=== PATIENT | female | born 1945 | race Caucasian/White ===

== ENCOUNTER 2017-01-14 22:30 | Inpatient (IN) | payer OTHER ==
--- NOTE | ~2017-01-14 | OP ---
Record Of Operation [facility] [address] [place]. [address] NAME: TAMI SHEEHAN : 47 STATUS : ADM IN PAT#: [id number] AGE: 71 ADM/REG DATE : 01/14/17 MR#: [id number] REPORT SERV DATE: 01/16/17 DICTATED BY: SATNAM VIDAL DATE: 01/15/17 REPORT STATUS : Draft TRANSCRIBED BY: MODZahira DATE: 01/15/17 DATE OF PROCEDURE: 01/15/2017 PTCA REPORT INDICATION FOR THIS PROCEDURE: Acute coronary syndrome. PROCEDURE IN DETAIL: The patient had already been prepped and draped. A 6-Niuean sheath was in place in the right femoral artery from the preceding cardiac catheterization. Moderate IV sedation was administered. A 6 JL4 coronary guiding catheter was advanced to the left coronary ostium. Left coronary artery injections confirmed the presence of a 95% ostial stenosis to the first diagonal branch just proximal to the site of previous stent implantation. After unsuccessful attempt to pass a 0.014 Luge guidewire and a 0.014 Graphix guidewire into the distal diagonal branch, a 0.014 Fielder XT guidewire was passed into the distal diagonal branch using a fine-cross catheter for support. The ostium of the diagonal branch was dilated with a 2.0/12 Emerge balloon at up to 15 atmospheres pressure for 15 seconds in duration. A 2.5/12 Synergy stent was then deployed in the ostium of the diagonal branch at up to 15 atmospheres pressure for 15 seconds in duration. Following deployment of the stent, the left coronary artery injections showed 0% residual stenosis at the site of stent implantation with LING grade 3 distal flow. The distal diagonal branch was small caliber and diffusely diseased and judged not suitable for further PCI. Following removal of the guiding catheter, the sheath was left in place. TOTAL CONTRAST USED: 200 mL. TOTAL RADIATION EXPOSURE: 1100 mGy. ESTIMATED BLOOD LOSS: No significant blood loss occurred. IMPRESSION: Successful PTCA and placement of drug-eluting stent in ostium of the first diagonal branch. RAAD/JINA Satnam Vidal M.D., Andrés / [id number] CC: Satnam Vidal M.D., Andrés ORELLANA NP
--- NOTE | ~2017-01-14 | PRECARD ---
H&P [address] [place]. [address] NAME: TAMI SHEEHAN : 47 STATUS : ADM IN PAT#: [id number] AGE: 71 ADM/REG DATE : 01/14/17 MR#: [id number] REPORT SERV DATE: 01/15/17 DICTATED BY: SATNAM LANGLEY DATE: 01/15/17 REPORT STATUS : Draft TRANSCRIBED BY: JINA DATE: 01/15/17 DATE OF ADMISSION: 01/14/2017 HISTORY OF PRESENT ILLNESS: The patient is a 71-year-old white female, who is status post previous myocardial infarction and stenting in June. The patient presented to [facility], complaining of oppressive substernal chest discomfort, radiating into her left shoulder intermittently throughout most of the day yesterday. The patient had negative cardiac enzymes and no acute changes on the electrocardiogram. The patient has continued to have discomfort since admission to [facility]. PAST MEDICAL HISTORY: Remarkable for coronary artery disease, hypertension, and cholecystectomy. SOCIAL HISTORY: The patient does not smoke. FAMILY HISTORY: Positive for coronary artery disease. REVIEW OF SYSTEMS: The patient has cough, wheeze, sputum production, vomiting, diarrhea, or dysuria. PHYSICAL EXAMINATION: VITAL SIGNS: Blood pressure is 143/54, heart rate 67 and regular, respirations 16 and nonlabored. ENT: Unremarkable. NECK: No jugular venous distention with good carotid upstroke. CHEST: Clear. CARDIOVASCULAR: The PMI is not displaced. S1 is normal. S2 is narrowly split. No gallop is present. ABDOMEN: Soft and nontender with normal bowel sounds. EXTREMITIES: No cyanosis, clubbing, or edema. SKIN: Warm and dry with no pallor or icterus. NEURO/PSYCH: The patient is oriented x3 with appropriate affect. LABORATORY DATA: BUN is 20, creatinine 1.1, hematocrit 36.7, potassium 3.7. EKG is within normal limits. IMPRESSION: 1. Acute coronary syndrome. 2. Hypertension. PLAN: 1. Proceed with cardiac catheterization for definitive evaluation of coronary anatomy and possible PCI. 2. Continue home medications for the time being. H&P [place] [id number] [facility] [place]. [address] NAME: TAMI SHEEHAN : 47 STATUS : ADM IN PAT#: [id number] AGE: 71 ADM/REG DATE : 01/14/17 MR#: [id number] REPORT SERV DATE: 01/15/17 DICTATED BY: SATNAM LANGLEY DATE: 01/15/17 REPORT STATUS : Draft TRANSCRIBED BY: JINA DATE: 01/15/17 RAAD/JINA Satnam Langley M.D., Andrés / [id number] CC: Satnam Langley M.D., JASON DALY
--- NOTE | ~2017-01-14 | CN ---
Consultation Report [place] [id number] [facility] [place]. [address] NAME: TAMI SHEEHAN : 47 STATUS : ADM IN [facility]#: [id number] AGE: 71 ADM/REG DATE : 01/14/17 MR#: [id number] REPORT SERV DATE: 01/16/17 DICTATED BY: ADAN BISWAS DATE: 01/16/17 REPORT STATUS : Draft TRANSCRIBED BY: MODL DATE: 01/16/17 CONSULT DATE OF CONSULTATION: 01/16/2017 REASON FOR CONSULTATION: Postoperative ventilator management. HISTORY OF PRESENT ILLNESS: The patient is a 71-year-old white female with a past medical history of hypertension, coronary artery disease, status post PCI in June of 2016 who initially presented to an outside hospital on the with complaints of progressive substernal chest pain that radiated to her left shoulder intermittently throughout most of the day preceding her admission. She at that time had negative cardiac markers as well as negative EKG but continued to have chest pain following admission, so was transferred here for which she underwent a cardiac catheterization today by Dr. Vidal. She had occlusion of her OM1 and had a drug-eluting stent placed. Following her heart catheterization, she had a progressive hypotension despite IV fluids and had an abdominal CT scan that showed a large amount of intraperitoneal retroperitoneal hemorrhage. She was taken by Vascular Surgery to have repair of her aneurysm and now comes out on the ventilator, and we are consulted to assist in management of her postoperative respiratory failure. PAST MEDICAL HISTORY: 1. Coronary artery disease, status post PCI in 06/2016. 2. Hypertension. 3. History of cholecystectomy. HOME MEDICATIONS: See medication reconciliation form. ALLERGIES: NO KNOWN DRUG ALLERGIES. SOCIAL HISTORY: Per the chart, no tobacco, alcohol, or IV drug abuse. FAMILY HISTORY: Unable to obtain secondary to sedation and intubation. REVIEW OF SYSTEMS: Unable to obtain secondary to sedation and intubation. PHYSICAL EXAMINATION: VITAL SIGNS: Temperature 98.3, heart rate 66, respiratory rate 10, and blood pressure 165/82. GENERAL: Sedated, intubated. HEENT: Pupils equal, round, and reactive to light. Extraocular movements intact. Oropharynx clear. Moist mucous membranes. NECK: Supple. Nontender. No lymphadenopathy. No thyromegaly. No jugular venous Consultation Report [place] [id number] [facility] [place]. [address] NAME: TAMI SHEEHAN : 47 STATUS : ADM IN PAT#: [id number] AGE: 71 ADM/REG DATE : 01/14/17 MR#: [id number] REPORT SERV DATE: 01/16/17 DICTATED BY: ADAN BISWAS DATE: 01/16/17 REPORT STATUS : Draft TRANSCRIBED BY: JINA DATE: 01/16/17 distention. LUNGS: Clear to auscultation bilaterally. CARDIOVASCULAR: Regular rate and rhythm. No murmurs, rubs, or gallops. ABDOMEN: Soft, nontender, nondistended. Positive bowel sounds. No hepatosplenomegaly. EXTREMITIES: No cyanosis, clubbing, or edema. NEURO: Sedated. PSYCH: Unable to assess. LABS AND IMAGING: Abdominal CT showed a large amount of intraperitoneal and retroperitoneal hemorrhage on the right side extending superiorly to above the diaphragm. Blood gas with a pH of 7.33, pCO2 of 34, PO2 of 379. CBC with a white count of 18,000, hemoglobin 10.7, and metabolic profile remarkable for creatinine of 1.2. ASSESSMENT AND PLAN: The patient is a 71-year-old white female with a past medical history of coronary artery disease, status post stent placement in 06/2016 as well as hypertension who initially presented with a [id number] myocardial infarction now status post drug- eluting stent to the [facility] now with acute postoperative respiratory failure and hypertension. 1. Postoperative respiratory failure. I have decreased the patient's tidal volume to 500 mL. I will continue ventilator management. We will provide daily awakening trials while the patient is on the ventilator to assess her neuro status and to assess for readiness to wean in the morning. 2. Hypertension. We will use labetalol IV p.r.n. and start Cardene drip if needed for refractory hypertension. 3. Appreciate the consult. We will continue to follow along with you. Please call with questions. DARIEL/JINA Adan Biswas MD / [id number] CC: Satnam Vidal M.D., F.A.CIsadoraCIsadora
--- NOTE | ~2017-01-14 | OP ---
Record Of Operation [facility] [address] [place]. [address] NAME: TAMI SHEEHAN : 47 STATUS : ADM IN PAT#: [id number] AGE: 71 ADM/REG DATE : 01/14/17 MR#: [id number] REPORT SERV DATE: 01/16/17 DICTATED BY: SATNAM VIDAL DATE: 01/15/17 REPORT STATUS : Draft TRANSCRIBED BY: JINA DATE: 01/15/17 DATE OF PROCEDURE: 01/15/2017 CARDIAC CATHETERIZATION REPORT INDICATION FOR THIS PROCEDURE: Acute coronary syndrome. PROCEDURE IN DETAIL: The patient was prepped and draped in usual sterile fashion. Adequate anesthesia was obtained over the right femoral vessels using lidocaine infiltration. Moderate IV sedation was administered. Using the Seldinger technique, 6-Guatemalan sheath was placed in the right femoral artery. A 6 FL4 coronary catheter was advanced in the left coronary ostium. Left coronary artery injections were performed in multiple views. Left coronary catheter was exchanged for 6 FR4 coronary catheter, which was advanced to the right coronary ostium. Right coronary injections were then performed in the STEVE and JEFFERS views. The right coronary catheter was removed and sheath was left in place in anticipation of subsequent angioplasty. There were no apparent complications. RESULTS: 1. Left main coronary artery is normal. 2. Left anterior descending coronary artery has a widely patent stent in its midportion. The ostium of the first diagonal branch of the LAD has a 95% stenosis proximal to the site of previous stent implantation. The distal first diagonal branch is a small caliber and diffusely diseased vessel. 3. Left circumflex coronary artery has a 30% to 40% lesion in the ostium of the obtuse marginal branch and is otherwise unremarkable. 4. The right coronary artery is a dominant vessel with a widely patent stented segment proximal to the origin of the posterior descending branch and in the proximal posterior descending branch. IMPRESSION: 1. Patent stents in mid LAD and RCA. 2. High-grade stenosis of the ostium of previously stented first diagonal branch. PLAN: Proceed with PCI of the first diagonal branch. RAAD/JINA Satnam Vidal M.D., Andrés / [id number] CC: Satnam Vidal M.D., Andrés Record Of Operation [address] [address] NAME: TAMI SHEEHAN : 46 STATUS : ADM IN PAT#: [id number] AGE: 71 ADM/REG DATE : 01/14/17 MR#: [id number] REPORT SERV DATE: 01/16/17 DICTATED BY: SATNAM VIDAL DATE: 01/15/17 REPORT STATUS : Draft TRANSCRIBED BY: MODZahira DATE: 01/15/17 JASON ORELLANA NP
--- NOTE | ~2017-01-14 | OP ---
Record Of Operation [facility] [address] [place]. [address] NAME: TAMI SHEEHAN : 47 STATUS : ADM IN PAT#: [id number] AGE: 71 ADM/REG DATE : 01/14/17 MR#: [id number] REPORT SERV DATE: 01/16/17 DICTATED BY: [place] AGUILAR DATE: 01/16/17 REPORT STATUS : Draft TRANSCRIBED BY: MODL DATE: 01/16/17 DATE OF PROCEDURE: 01/15/2017 PREOPERATIVE DIAGNOSES: Status post cardiac catheterization with right retroperitoneal bleeding and hypotension. POSTOPERATIVE DIAGNOSES: Status post cardiac catheterization with right retroperitoneal bleeding and hypotension. SURGERY PERFORMED: Open exposure and primary repair of the common femoral artery. BEAD PICKER: Francesca. DESCRIPTION OF PROCEDURE: The patient was brought to the operating suite after developing hypotension after a cardiac catheterization was done. The CT was showing retroperitoneal hematoma. She was brought to the operating room emergently. She was placed under general anesthesia. Right leg was prepped and draped in a sterile fashion. A vertical incision was made over the femoral vessels. Dissection was carried down to the femoral vessels, which were dissected using sharp dissection. The common femoral was encircled distally. Dissection was done up underneath the inguinal ligament until the area of the stick site was noted. There was a lateral puncture site that was not actively bleeding at this point in time. This was oversewn with running 6-0 Prolene suture. Further exploration of the iliac up almost to the common showed no other areas of bleeding. There was a retroperitoneal hematoma that appeared to extend well above this area. You could see only the lower portion from underneath the inguinal ligament. It was suspected that the oozing is possibly due to a secondary source, but there was no evidence of active bleeding at this time. A 10 flat JIAN drain was then placed up into the retroperitoneal space, brought out over the thigh, and sutured to the skin with 3-0 Vicryl. The wound was closed with 2-0 and 3-0 Vicryl for the deep and superficial tissue. The skin was closed with Monocryl subcuticular suture and then Dermabond dressing was applied. Estimated blood loss for the operation was 50 mL. She was stable during the operation after receiving 2 units of blood. She was taken back to the intensive care unit for surveillance. MG/JINA Eugene Aguilar M.D. / [id number]
--- NOTE | ~2017-01-14 | DS ---
Discharge Summary [facility] [address] [facility] [place]. [address] NAME: TAMI SHEEHAN : 47 STATUS : DIS IN PAT#: [id number] AGE: 71 ADM/REG DATE : 01/14/17 MR#: [id number] REPORT SERV DATE: 02/05/17 DICTATED BY: SATNAM VIDAL DATE: 02/04/17 REPORT STATUS : Draft TRANSCRIBED BY: JINA DATE: 02/04/17 Data Collection from hospitalization DISCHARGE DIAGNOSES: 1. Acute coronary syndrome, status post percutaneous coronary intervention to the diagonal. 2. Hypertension. 3. Coronary artery disease. 4. Retroperitoneal bleed. 5. History of myocardial infarction. CONSULTATIONS: 1. Dr. Paxton Biswas. 2. Dr. Eugene Aguilar. PROCEDURES PERFORMED: 1. Cardiac catheterization, 01/15/2017. 2. Percutaneous coronary intervention on 01/15/2017. 3. Open exposure and primary repair of common femoral artery 01/15/2017. 4. CT scan of the abdomen and pelvis without contrast, 01/15/2017. 5. Duplex arterial study of the lower extremities, 01/15/2017. 6. CT scan of the abdomen and pelvis with contrast, 01/21/2017. MEDICATIONS: Aspirin 81 mg daily, Lipitor 40 mg daily, Lotensin 40 mg daily, Coreg 3.125 mg twice a day, Plavix 75 mg daily, hemocyte 324 mg with meals, Lopid 600 mg at bedtime, melatonin 3 mg at bedtime, Nitrostat 0.4 mg sublingually as needed, Percocet 5/325 one tablet every six hours as needed. She was instructed not to continue Brilinta. CONDITION AT DISCHARGE: Stable. DISPOSITION: The patient was discharged home on a low-sodium, low-cholesterol, cardiac diet with activities as instructed. She would follow up with ak 01/29/[address] Eugene Aguilar 01/30/2017. She would follow up with her primary care provider as needed. HOSPITAL COURSE: This is a 71-year-old female who had had a previous myocardial infarction and stenting in June. The patient had presented to [facility] complaining of oppressive substernal chest discomfort that radiated into the left shoulder intermittently throughout most of the day on the day prior to admission. The patient had negative cardiac enzymes and no acute changes on electrocardiogram. The patient continued to have discomfort since admission to [facility]. EKG was within normal limits. It was felt that she had acute coronary syndrome and would need to undergo cardiac catheterization for definitive evaluation of coronary anatomy and possible percutaneous coronary intervention. She was admitted to the hospital at this time for further evaluation and treatment. Upon admission, home medications were continued for the time being. Creatinine level was 1.1. The patient was taken to the cardiac oil field laborer where she underwent the above-mentioned procedure. She tolerated this well, and there were no complications. Following the cardiac catheterization, the patient was found to have right retroperitoneal bleed being and Discharge Summary [facility] [address] [facility] [place]. [address] NAME: TAMI SHEEHAN : 47 STATUS : DIS IN PAT#: [id number] AGE: 71 ADM/REG DATE : 01/14/17 MR#: [id number] REPORT SERV DATE: 02/05/17 DICTATED BY: SATNAM VIDAL DATE: 02/04/17 REPORT STATUS : Draft TRANSCRIBED BY: JINA DATE: 02/04/17 hypotension. The patient had a CT scan that showed retroperitoneal hematoma. Duplex Doppler imaging of the lower extremities was also performed. She was taken to the operating room by Dr. Augilar, where she underwent open exposure and primary repair of the common femoral artery. She tolerated this well, and there were no complications. Echocardiogram had shown no pericardial effusion. Left ventricular ejection fraction was greater than 60%. The following day, the patient was seen by Dr. Paxton Biswas regarding postoperative ventilator management. The patient was on the ventilator, and he had been consulted to assist in management of her postoperative respiratory failure. White count was 18,000. Creatinine level was 1.2. The patient's tidal volume was decreased. Ventilator management continued. He was going to provide daily awakening trial while the patient was on the ventilator to assess her neuro status and to assess for readiness to wean the following morning. IV labetalol would be given as needed for hypertension, and we would begin Cardene drip if needed for refractory hypertension. She was in no distress. Brilinta was going to be changed to Plavix. On the , she was doing okay. H and H were drifting down. The patient had been extubated. She remained in the ICU. On the , she said she was doing better. The pain in the right lower quadrant had decreased. There was no motor or sensory change to the leg. She was afebrile. She was in no distress. She was going to be transferred to the floor. H and H remained stable. The arterial line and central line were going to be removed. She was evaluated by Physical Therapy. On 01/19/2017, she continued to do well. She was up sitting in a chair. She was afebrile. The JIAN drain was discontinued. Over the next couple of days, she continued to do well. Discharge planning was performed. She was ambulating some. On 01/21/2017, she was in no distress. Her lungs were clear. CT scan of the abdomen and pelvis with contrast was performed. There was partial resolution of the hemorrhage extending from the right groin into the right pelvis and right abdomen. No acute hemorrhage was identified. There was no bowel obstruction. There was a large amount of retained stool throughout the colon. Discharge instructions were given. Due to her improved and stable condition, she was discharged home with the above-stated instructions. Information collected by: Maura Asher I submit the above information as my discharge summary. TG/MODL Satnam Vidal M.D., Andrés / [id number] CC: Satnam Vidal M.D., Andrés Aguilar M.D.
[2017-01-14] MEDS ORDERED: LIPITOR40 PO (22:53)
[2017-01-14] MEDS ORDERED: ASAB PO (22:53)
[2017-01-14] MEDS ORDERED: LOTE40 PO (22:54)
[2017-01-14] MEDS ORDERED: BRILINTA90 MG PO (22:54)
[2017-01-14] MEDS ORDERED: NITROSTAT0.4 MG SL (22:55)
[2017-01-14] MEDS ORDERED: LOPID6 PO (22:55)
[2017-01-14 23:51] LABS: BASOPHILS 0.7 %; BASOPHILS ABSOLUTE 0.05 10/3/uL (0.0-0.16); EOSINOPHILS 3.4 %; EOSINOPHILS ABSOLUTE 0.25 10/3/uL (0.0-0.53); HEMOGLOBIN 11.6 g/dL (12.0-16.0); IMMATURE GRANULOCYTES 0.7 %; IMMATURE GRANULOCYTES ABSOLUTE 0.05 10/3/uL (0.0-0.11); LYMPHOCYTES 30.6 %; LYMPHOCYTES ABSOLUTE 2.24 10/3/uL (0.67-4.30); MANUAL DIFF NO %; MEAN CORPUS HGB CONC 34.1 g/dL (32.0-36.0); MEAN CORPUSCULAR HEMOGLOB 30.6 pg (26.0-34.0); MEAN CORPUSCULAR VOLUME 89.7 fL (80-100); MEAN PLATELET VOLUME 11.9 fL (9.2-13.0); MONOCYTES 8.9 %; MONOCYTES ABSOLUTE 0.65 10/3/uL (0.21-1.20); NEUTROPHILS 55.7 %; NEUTROPHILS ABSOLUTE 4.08 10/3/uL (2.02-8.40); PLATELET COUNT 154 10/3/uL (150-400); RBC DISTRIBUTION WIDTH 13.1 % (12.0-16.0); RED CELL COUNT 3.79 10/6/uL (4.0-5.6); WHITE BLOOD CELLS 7.3 10/3/uL (4.5-10.5)
[2017-01-15 00:07] LABS: A/G RATIO 1.2 (0.7-1.9); ALBUMIN 3.8 G/DL (3.5-5.0); ALKALINE PHOSPHATASE 79 U/L (45-117); BUN (BLOOD UREA NITROGEN) 20 MG/DL (6-23); CALCIUM, SERUM 8.9 MG/DL (8.5-10.4); CHLORIDE, SERUM 108 MMOL/L (96-112); CO2 (CARBON DIOXIDE) 27 MMOL/L (24-34); CPK 96 U/L (0-200); CREATININE 1.11 MG/DL (0.55-1.02); GFR AFRICAN AMERICAN 58 ML/MIN (>=60); GFR NON AFRICAN AMERICAN 50 ML/MIN (>=60); GLOBULIN 3.1 G/DL (2.5-4.1); GLUCOSE, SERUM 135 MG/DL (60-99); PARTIAL THROMBO TIME > 150.0 SEC (22.5-37.2); POTASSIUM, SERUM 4.3 MMOL/L (3.5-5.3); SGOT(AST) 22 U/L (5-40); SGPT(ALT) 27 U/L (5-65); SODIUM, SERUM 141 MMOL/L (135-148); TOTAL BILIRUBIN 0.4 MG/DL (0-1.2); TOTAL PROTEIN 6.9 G/DL (6.0-8.5); TROPONIN I <0.02 NG/ML (<0.05)
[2017-01-15 00:09] LABS: CK-MB 0.9 NG/ML
[2017-01-15 01:16] LABS: PHOSPHORUS, SERUM 3.4 MG/DL (2.5-4.5)
[2017-01-15 02:01] LABS: INTERNATIONAL NORMAL RATI 1.1 UNITS (-); PROTIME (NOT ORD) 14.3 SEC (12.0-14.5)
[2017-01-15 06:33] LABS: BUN (BLOOD UREA NITROGEN) 20 MG/DL (6-23); CALCIUM, SERUM 8.9 MG/DL (8.5-10.4); CHLORIDE, SERUM 109 MMOL/L (96-112); CO2 (CARBON DIOXIDE) 26 MMOL/L (24-34); GFR AFRICAN AMERICAN 59 ML/MIN (>=60); GFR NON AFRICAN AMERICAN 51 ML/MIN (>=60); GLUCOSE, SERUM 139 MG/DL (60-99); POTASSIUM, SERUM 4.3 MMOL/L (3.5-5.3); SODIUM, SERUM 141 MMOL/L (135-148); TROPONIN I <0.02 NG/ML (<0.05)
[2017-01-15 14:16] LABS: CPK 93 U/L (0-200)
[2017-01-15 14:17] LABS: CK-MB 2.1 NG/ML
[2017-01-15 19:10] LABS: HEMOGLOBIN 9.4 g/dL (12.0-16.0)
[2017-01-15 23:36] LABS: BE (BASE EXCESS) -7.6 MEQ/L (0 +/- 2.5); CARBOXYHEMOGLOBIN 0.3 % (0-3); HCO3 (ACTUAL BICARBONATE) 17.5 MEQ/L (23-27); HEMOBLOGIN CONTENT 11.5 G/DL (12-16); INSTRUMENT SERIAL # 35151; METHEMOGLOBIN 0.7 % (0-3); MODE CMV; O2 CONTENT 16.8 VOL% (18-24); OPERATOR ID 13861; PCO2 (CO2 TENSION) 34 MMHG (35-45); PO2 (O2 TENSION) 379 MMHG (79-93); SAMPLE Arterial; TIDAL VOLUME 600 ML; pH 7.33 (7.37-7.43)
[2017-01-15 23:47] LABS: BASOPHILS 0.1 %; BASOPHILS ABSOLUTE 0.02 10/3/uL (0.0-0.16); EOSINOPHILS 0.1 %; EOSINOPHILS ABSOLUTE 0.02 10/3/uL (0.0-0.53); HEMATOCRIT 30.8 % (36.0-48.0); HEMOGLOBIN 10.7 g/dL (12.0-16.0); IMMATURE GRANULOCYTES 0.9 %; IMMATURE GRANULOCYTES ABSOLUTE 0.17 10/3/uL (0.0-0.11); LYMPHOCYTES 5.3 %; LYMPHOCYTES ABSOLUTE 0.98 10/3/uL (0.67-4.30); MEAN CORPUS HGB CONC 34.7 g/dL (32.0-36.0); MEAN CORPUSCULAR HEMOGLOB 30.5 pg (26.0-34.0); MEAN CORPUSCULAR VOLUME 87.7 fL (80-100); MEAN PLATELET VOLUME 11.6 fL (9.2-13.0); MONOCYTES 4.3 %; NEUTROPHILS 89.3 %; NEUTROPHILS ABSOLUTE 16.58 10/3/uL (2.02-8.40); PLATELET COUNT 124 10/3/uL (150-400); RBC DISTRIBUTION WIDTH 13.7 % (12.0-16.0); RED CELL COUNT 3.51 10/6/uL (4.0-5.6)
[2017-01-15 23:58] LABS: BUN (BLOOD UREA NITROGEN) 19 MG/DL (6-23); CHLORIDE, SERUM 116 MMOL/L (96-112); CREATININE 1.26 MG/DL (0.55-1.02); GFR AFRICAN AMERICAN 50 ML/MIN (>=60); GFR NON AFRICAN AMERICAN 43 ML/MIN (>=60); POTASSIUM, SERUM 3.9 MMOL/L (3.5-5.3); SODIUM, SERUM 145 MMOL/L (135-148)
[2017-01-16 00:01] LABS: MANUAL DIFF NO %; WHITE BLOOD CELLS 18.6 10/3/uL (4.5-10.5)
[2017-01-16 00:03] LABS: CALCIUM, SERUM 7.2 MG/DL (8.5-10.4); CO2 (CARBON DIOXIDE) 19 MMOL/L (24-34); GLUCOSE, SERUM 178 MG/DL (60-99)
[2017-01-16 03:27] LABS: BE (BASE EXCESS) -6.9 MEQ/L (0 +/- 2.5); CARBOXYHEMOGLOBIN 0.1 % (0-3); HCO3 (ACTUAL BICARBONATE) 19.4 MEQ/L (23-27); HEMOBLOGIN CONTENT 11.4 G/DL (12-16); INSTRUMENT SERIAL # 35151; METHEMOGLOBIN 0.7 % (0-3); MODE CMV; O2 CONTENT 15.8 VOL% (18-24); OPERATOR ID 23712; PCO2 (CO2 TENSION) 42 MMHG (35-45); PO2 (O2 TENSION) 135 MMHG (79-93); SAMPLE Arterial; TIDAL VOLUME 500 ML; pH 7.28 (7.37-7.43)
[2017-01-16 04:29] LABS: HEMATOCRIT 30.4 % (36.0-48.0); HEMOGLOBIN 10.6 g/dL (12.0-16.0)
[2017-01-16 04:45] LABS: CK-MB 8.5 NG/ML
[2017-01-16 04:49] LABS: CPK 285 U/L (0-200)
[2017-01-16 04:50] LABS: TROPONIN I 0.39 NG/ML (<0.05)
[2017-01-16 06:19] LABS: BUN (BLOOD UREA NITROGEN) 20 MG/DL (6-23); CALCIUM, SERUM 7.2 MG/DL (8.5-10.4); CHLORIDE, SERUM 113 MMOL/L (96-112); CO2 (CARBON DIOXIDE) 21 MMOL/L (24-34); CREATININE 1.21 MG/DL (0.55-1.02); GFR AFRICAN AMERICAN 52 ML/MIN (>=60); GFR NON AFRICAN AMERICAN 45 ML/MIN (>=60); GLUCOSE, SERUM 217 MG/DL (60-99); POTASSIUM, SERUM 4.2 MMOL/L (3.5-5.3); SODIUM, SERUM 143 MMOL/L (135-148)
[2017-01-16 07:03] LABS: BASOPHILS 0.1 %; BASOPHILS ABSOLUTE 0.01 10/3/uL (0.0-0.16); EOSINOPHILS 0 %; IMMATURE GRANULOCYTES 0.9 %; IMMATURE GRANULOCYTES ABSOLUTE 0.16 10/3/uL (0.0-0.11); LYMPHOCYTES 3.3 %; LYMPHOCYTES ABSOLUTE 0.59 10/3/uL (0.67-4.30); MEAN CORPUS HGB CONC 35.3 g/dL (32.0-36.0); MEAN CORPUSCULAR HEMOGLOB 30.5 pg (26.0-34.0); MEAN CORPUSCULAR VOLUME 86.2 fL (80-100); MONOCYTES 6.5 %; MONOCYTES ABSOLUTE 1.16 10/3/uL (0.21-1.20); NEUTROPHILS 89.2 %; NEUTROPHILS ABSOLUTE 15.85 10/3/uL (2.02-8.40); PLATELET COUNT 113 10/3/uL (150-400); RBC DISTRIBUTION WIDTH 14.4 % (12.0-16.0); RED CELL COUNT 3.48 10/6/uL (4.0-5.6); WHITE BLOOD CELLS 17.8 10/3/uL (4.5-10.5)
[2017-01-16 07:05] LABS: MANUAL DIFF NO %
[2017-01-16 10:53] LABS: HEMATOCRIT 29.6 % (36.0-48.0); HEMOGLOBIN 10.2 g/dL (12.0-16.0)
[2017-01-16 17:13] LABS: HEMATOCRIT 26.8 % (36.0-48.0); HEMOGLOBIN 9.5 g/dL (12.0-16.0)
[2017-01-16 22:20] LABS: HEMATOCRIT 24.8 % (36.0-48.0); HEMOGLOBIN 8.7 g/dL (12.0-16.0)
[2017-01-17 03:34] LABS: BASOPHILS 0.2 %; BASOPHILS ABSOLUTE 0.02 10/3/uL (0.0-0.16); EOSINOPHILS 0.8 %; EOSINOPHILS ABSOLUTE 0.09 10/3/uL (0.0-0.53); HEMATOCRIT 23.6 % (36.0-48.0); HEMOGLOBIN 8.3 g/dL (12.0-16.0); IMMATURE GRANULOCYTES 0.4 %; IMMATURE GRANULOCYTES ABSOLUTE 0.05 10/3/uL (0.0-0.11); LYMPHOCYTES 14.2 %; LYMPHOCYTES ABSOLUTE 1.64 10/3/uL (0.67-4.30); MEAN CORPUS HGB CONC 35.2 g/dL (32.0-36.0); MEAN CORPUSCULAR HEMOGLOB 30.2 pg (26.0-34.0); MEAN CORPUSCULAR VOLUME 85.8 fL (80-100); MEAN PLATELET VOLUME 11.7 fL (9.2-13.0); MONOCYTES 8.6 %; MONOCYTES ABSOLUTE 0.99 10/3/uL (0.21-1.20); NEUTROPHILS 75.8 %; NEUTROPHILS ABSOLUTE 8.72 10/3/uL (2.02-8.40); PLATELET COUNT 108 10/3/uL (150-400); RBC DISTRIBUTION WIDTH 15.1 % (12.0-16.0); WHITE BLOOD CELLS 11.5 10/3/uL (4.5-10.5)
[2017-01-17 03:36] LABS: MANUAL DIFF NO %; RED CELL COUNT 2.75 10/6/uL (4.0-5.6)
[2017-01-17 03:42] LABS: INTERNATIONAL NORMAL RATI 1.3 UNITS (-); PARTIAL THROMBO TIME 31.3 SEC (22.5-37.2); PROTIME (NOT ORD) 16.2 SEC (12.0-14.5)
[2017-01-17 03:57] LABS: BUN (BLOOD UREA NITROGEN) 18 MG/DL (6-23); CALCIUM, SERUM 7.6 MG/DL (8.5-10.4); CHLORIDE, SERUM 111 MMOL/L (96-112); CO2 (CARBON DIOXIDE) 23 MMOL/L (24-34); CREATININE 1.19 MG/DL (0.55-1.02); GFR AFRICAN AMERICAN 54 ML/MIN (>=60); GFR NON AFRICAN AMERICAN 46 ML/MIN (>=60); POTASSIUM, SERUM 3.7 MMOL/L (3.5-5.3); SODIUM, SERUM 141 MMOL/L (135-148)
[2017-01-17 03:59] LABS: GLUCOSE, SERUM 163 MG/DL (60-99); PHOSPHORUS, SERUM 1.6 MG/DL (2.5-4.5)
[2017-01-17 10:00] LABS: HEMATOCRIT 23.6 % (36.0-48.0); HEMOGLOBIN 8.3 g/dL (12.0-16.0)
[2017-01-17 15:09] LABS: HEMATOCRIT 25.7 % (36.0-48.0); HEMOGLOBIN 8.9 g/dL (12.0-16.0)
[2017-01-17 18:28] LABS: BUN (BLOOD UREA NITROGEN) 17 MG/DL (6-23); CALCIUM, SERUM 8.1 MG/DL (8.5-10.4); CHLORIDE, SERUM 108 MMOL/L (96-112); CO2 (CARBON DIOXIDE) 27 MMOL/L (24-34); CREATININE 1.23 MG/DL (0.55-1.02); GFR AFRICAN AMERICAN 51 ML/MIN (>=60); GFR NON AFRICAN AMERICAN 44 ML/MIN (>=60); GLUCOSE, SERUM 175 MG/DL (60-99); PHOSPHORUS, SERUM 1.4 MG/DL (2.5-4.5); POTASSIUM, SERUM 3.5 MMOL/L (3.5-5.3); SODIUM, SERUM 141 MMOL/L (135-148)
[2017-01-17 19:59] LABS: HEMATOCRIT 25.3 % (36.0-48.0); HEMOGLOBIN 8.8 g/dL (12.0-16.0)
[2017-01-18 03:03] LABS: HEMOGLOBIN 8.9 g/dL (12.0-16.0)
[2017-01-18 07:31] LABS: HEMATOCRIT 25.5 % (36.0-48.0); HEMOGLOBIN 8.8 g/dL (12.0-16.0)
[2017-01-18 08:36] LABS: BASOPHILS 0.3 %; BASOPHILS ABSOLUTE 0.03 10/3/uL (0.0-0.16); EOSINOPHILS 1.3 %; EOSINOPHILS ABSOLUTE 0.13 10/3/uL (0.0-0.53); IMMATURE GRANULOCYTES 0.5 %; IMMATURE GRANULOCYTES ABSOLUTE 0.05 10/3/uL (0.0-0.11); LYMPHOCYTES 16.9 %; MEAN CORPUS HGB CONC 34.1 g/dL (32.0-36.0); MEAN CORPUSCULAR HEMOGLOB 29.6 pg (26.0-34.0); MEAN CORPUSCULAR VOLUME 86.7 fL (80-100); MEAN PLATELET VOLUME 11.7 fL (9.2-13.0); MONOCYTES 9.8 %; MONOCYTES ABSOLUTE 0.98 10/3/uL (0.21-1.20); NEUTROPHILS 71.2 %; NEUTROPHILS ABSOLUTE 7.16 10/3/uL (2.02-8.40); PLATELET COUNT 123 10/3/uL (150-400); RBC DISTRIBUTION WIDTH 14.8 % (12.0-16.0); RED CELL COUNT 2.94 10/6/uL (4.0-5.6); WHITE BLOOD CELLS 10.1 10/3/uL (4.5-10.5)
[2017-01-18 08:39] LABS: MANUAL DIFF NO %
[2017-01-18 08:53] LABS: BUN (BLOOD UREA NITROGEN) 16 MG/DL (6-23); CALCIUM, SERUM 8.4 MG/DL (8.5-10.4); CHLORIDE, SERUM 105 MMOL/L (96-112); CO2 (CARBON DIOXIDE) 29 MMOL/L (24-34); GFR AFRICAN AMERICAN 53 ML/MIN (>=60); GFR NON AFRICAN AMERICAN 46 ML/MIN (>=60); POTASSIUM, SERUM 3.4 MMOL/L (3.5-5.3); SODIUM, SERUM 141 MMOL/L (135-148)
[2017-01-18 08:56] LABS: GLUCOSE, SERUM 130 MG/DL (60-99)
[2017-01-18 09:48] LABS: PHOSPHORUS, SERUM 2.6 MG/DL (2.5-4.5)
[2017-01-18 17:11] LABS: HEMATOCRIT 27.3 % (36.0-48.0); HEMOGLOBIN 9.1 g/dL (12.0-16.0)
[2017-01-18 23:07] LABS: HEMATOCRIT 25.3 % (36.0-48.0); HEMOGLOBIN 8.6 g/dL (12.0-16.0)
[2017-01-19 05:43] LABS: HEMATOCRIT 25.3 % (36.0-48.0); HEMOGLOBIN 8.4 g/dL (12.0-16.0)
[2017-01-21 05:33] LABS: BASOPHILS 0.3 %; BASOPHILS ABSOLUTE 0.03 10/3/uL (0.0-0.16); EOSINOPHILS 3.1 %; EOSINOPHILS ABSOLUTE 0.33 10/3/uL (0.0-0.53); HEMATOCRIT 24.8 % (36.0-48.0); HEMOGLOBIN 8.2 g/dL (12.0-16.0); IMMATURE GRANULOCYTES ABSOLUTE 0.22 10/3/uL (0.0-0.11); LYMPHOCYTES 12.6 %; LYMPHOCYTES ABSOLUTE 1.35 10/3/uL (0.67-4.30); MEAN CORPUS HGB CONC 33.1 g/dL (32.0-36.0); MEAN CORPUSCULAR VOLUME 87.6 fL (80-100); MEAN PLATELET VOLUME 11.2 fL (9.2-13.0); MONOCYTES 13.2 %; MONOCYTES ABSOLUTE 1.42 10/3/uL (0.21-1.20); NEUTROPHILS 68.8 %; NEUTROPHILS ABSOLUTE 7.39 10/3/uL (2.02-8.40); NUCLEATED RED BLOOD CELLS 0.3 /100WBC (0-0); RED CELL COUNT 2.83 10/6/uL (4.0-5.6); WHITE BLOOD CELLS 10.7 10/3/uL (4.5-10.5)
[2017-01-21 05:34] LABS: MANUAL DIFF NO %; PLATELET COUNT 184 10/3/uL (150-400)
[2017-01-21 07:24] LABS: BUN (BLOOD UREA NITROGEN) 20 MG/DL (6-23); CALCIUM, SERUM 8.9 MG/DL (8.5-10.4); CHLORIDE, SERUM 100 MMOL/L (96-112); CO2 (CARBON DIOXIDE) 27 MMOL/L (24-34); CREATININE 1.06 MG/DL (0.55-1.02); GFR AFRICAN AMERICAN 62 ML/MIN (>=60); GFR NON AFRICAN AMERICAN 53 ML/MIN (>=60); GLUCOSE, SERUM 186 MG/DL (60-99); POTASSIUM, SERUM 4.3 MMOL/L (3.5-5.3); SODIUM, SERUM 137 MMOL/L (135-148)
[2017-01-21] MEDS ORDERED: COREG3 PO (10:42)
[2017-01-21] MEDS ORDERED: MELA3 PO (10:43)
[2017-01-21] MEDS ORDERED: PLAVIX PO (10:43)
[2017-01-21] MEDS ORDERED: HEMOCYTE324 MG PO (10:46)
[2017-01-21] MEDS ORDERED: PCET PO (10:48)
== END 2017-01-21 14:13 | disposition home or self-care (01) | DRG 246 ==
LOC: 6NO 22:30 → SSU1 01-15 13:29 → SDC/OF 01-15 19:43 → CCU 01-15 19:58 → 6NO 01-18 14:34
PROVIDERS: Internal Medicine Critical Care Medicine; Internal Medicine Interventional Cardiology; Surgery Vascular Surgery
PROC: 4A023N7 Measurement of Cardiac Sampling and Pressure, Left Heart, Percutaneous Approach (ICD-10-PCS; 2017-01-15)
PROC: B2151ZZ Fluoroscopy of Left Heart using Low Osmolar Contrast (ICD-10-PCS; 2017-01-15)
PROC: B2111ZZ Fluoroscopy of Multiple Coronary Arteries using Low Osmolar Contrast (ICD-10-PCS; 2017-01-15)
PROC: 30233N1 Transfusion of Nonautologous Red Blood Cells into Peripheral Vein, Percutaneous Approach (ICD-10-PCS; 2017-01-15)
PROC: 027034Z Dilation of Coronary Artery, One Artery with Drug-eluting Intraluminal Device, Percutaneous Approach (ICD-10-PCS; principal; 2017-01-15 21:17)
PROC: 04QK0ZZ Repair Right Femoral Artery, Open Approach (ICD-10-PCS; 2017-01-15 21:17)
PROC: 0BH17EZ Insertion of Endotracheal Airway into Trachea, Via Natural or Artificial Opening (ICD-10-PCS; 2017-01-16)
PROC: 5A1935Z Respiratory Ventilation, Less than 24 Consecutive Hours (ICD-10-PCS; 2017-01-16)
DX: I25.110 Atherosclerotic heart disease of native coronary artery with unstable angina pectoris (principal); J95.821 Acute postprocedural respiratory failure; I97.610 Postprocedural hemorrhage of a circulatory system organ or structure following a cardiac catheterization; D62 Acute posthemorrhagic anemia; I95.81 Postprocedural hypotension; I10 Essential (primary) hypertension; Z98.890 Other specified postprocedural states; Z82.49 Family history of ischemic heart disease and other diseases of the circulatory system; Z95.5 Presence of coronary angioplasty implant and graft; Y84.0 Cardiac catheterization as the cause of abnormal reaction of the patient, or of later complication, without mention of misadventure at the time of the procedure; Z90.49 Acquired absence of other specified parts of digestive tract
CPT/HCPCS: 31720; 36415; 71010; 74176; 74177; 80048; 80053; 80069; 82330; 82550; 82553; 82803; 82805; 82947; 82962; 83735; 84100; 84132; 84295; 84484; 85014; 85018; 85025; 85610; 85730; 86850; 86900; 86901; 86920; 87641; 93005; 93308; 93454; 93926; 94002; 94003; 94660; 94770; 97162-GP; 97530-GP; 99152; 99153; A9270-GY; C1725; C1769; C1874; C1887; C9113; C9600; G8978-CK-GP; G8979-CI-GP; J0583; J0690; J1170; J1644; J2250; J2370; J2405; J3010; J3475; P9016; Q9967